=== PATIENT | female | born 1990 | race Caucasian/White ===

== ENCOUNTER 2017-03-06 17:26 | Emergency (ER) | payer MEDICAID ==
[~2017-03-06] VITALS: Ht 162.6 cm; Wt 68.0 kg
[~2017-03-06 17:26] MED LIST: HYDROCODONE-APA1 TA1 PO
[2017-03-06 18:18] LABS: URINE BILIRUBIN - DIPSTICK NEGATIVE (NEG); URINE BLOOD NEGATIVE (NEG)
[2017-03-06 18:25] LABS: LYMPH # 2.5 K/mm3 (0.7-4.5); LYMPH % 20.1 % (10-50.0)
[2017-03-06 18:26] LABS: URINE SQUAMOUS CELLS OCC #/hpf (0-5)
--- NOTE | 2017-03-06 18:27 | Emergency Room Report ---
History of Present Illness Time Seen by MD Diaz Presenting Problem in Triage Pt arrived:Walked Presenting Problem:RIGHT FLANK AND RIGHT LOW ABD PAIN PT THINKS HAS A KIDNEY STONE Onset of symptoms date/time:/ or onset unknown for:MEDICAL HX UNKNOWN Treatment Prior to Arrival: VIDEO PRODUCTION INTERN Provided by: Sepsis Risk Assessment: Temp: 98.0 B/P: 117/65 MAP: 82 Pulse: 72 Resp: 18 Recent fever? N Clinical Suspician of Infection? N Mental Status: 1 - Regular (Normal Baseline) Sepsis Risk:Low Sepsis Risk Have you (or family members/close friends) recently traveled outside the [place]? N If Yes, where/when: Have you had exposure to infectious disease within the past month? TB? Other? Specify: Comment Patient complains of RIGHT flank pain that started about 2 PM today. It has now resolved. She has a prior history of a kidney stone, called her primary care provider who advised to come in for evaluation. No other symptoms. ALLERGIES Coded Allergies: No Known Allergies (03/06/17) Home Medications Active Scripts HYDROCODONE 5MG/APAP 325MG (Hydrocodon-Acetaminophen 5-325) 1 TAB PO Q6HP PRN MODERATE TO SEVERE PAIN #30 TAB Prov: 08/12/14 History Medical History General More? 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 Musculoskeletal back pain Physical Exam Vital Signs Vital Signs Date Time Temp Pulse Resp B/P Pulse O2 O2 Flow FiO2 Ox Delivery Rate 03/06 1734 98.0 72 18 117/65 99 General Appearance no apparent distress Eye Exam - bilateral eye normal exam, bilateral eye PERRL, bilateral eye EOMI Ear, Nose, Throat hearing grossly normal, normal ENT inspection Neck normal inspection, non-tender, supple, full range of motion Respiratory Status Yes: trachea midline, chest symmetrical. No: respiratory distress. Lung Sounds bilateral: normal breath sounds, lungs clear. Cardiovascular normal exam, regular rate/rhythm, no peripheral edema, no gallop, no JVD, no murmur, no rub, normal peripheral pulses Peripheral Pulses Pulses normal Yes Gastrointestinal normal bowel sounds, normal exam, non tender, soft, no organomegaly Back no CVA tenderness Extremities normal inspection Neurologic alert, oriented x 3 Mental status normal mood/affect Skin intact, normal color, warm/dry Medical Decision Making LABS/Meds/Orders Pt receiving controlled substance in ED? No Results/Orders Laboratory Tests 03/06/17 1806: Sodium 142, Potassium 4.0, Chloride 98, Carbon Dioxide 25, BUN 12, Creatinine 0.8, Estimated Creat Clear 115, Estimated GFR (MDRD) 87, Glucose 96, Calcium 9.4 , Total Bilirubin 0.4, AST 11 L, ALT 13, Alkaline Phosphatase 73, Total Protein 8.6 H, Albumin 4.4, Globulin 4.2 H, Albumin/Globulin Ratio 1.0 L, Amylase 64, Lipase 141, WBC 12.2 H, RBC 4.47, Hgb 13.3, Hct 39.3, MCV 87.9, RDW 14.2, Plt Count 271, MPV 7.1 L, Gran % 74.2, Gran # 9.1 H, Lymphocytes % 20.1, Monocytes % 4.3, Eosinophils % 0.9, Basophils % 0.5, Lymphocytes # 2.5, Monocytes # 0.5, Eosinophils # 0.1, Basophils # 0.1, PUBS MCHC 33.6, MCH 29.6 03/06/17 1740: Urine Color YELLOW, Urine Appearance CLEAR, Urine pH 7.0, Ur Specific [place] 1.010, Urine Protein NEGATIVE, Urine Ketones NEGATIVE, Urine Blood NEGATIVE, Urine Nitrate NEGATIVE, Urine Bilirubin NEGATIVE, Urine Urobilinogen 0.2, Ur Leukocyte Esterase NEGATIVE, Urine RBC NONE, Urine WBC NONE, Ur Squamous Epith Cells OCC, Urine Bacteria 1+, Urine Glucose NEGATIVE Orders Procedure Date/time Status DIET-NOTHING BY MOUTH 03/[address] ABD & PELVIS W/O CONTRAST 03/[address] ABD/PELVIS REQ 03/06 1759 Complete URINALYSIS/COMPLETE 03/06 1759 Complete URINE 03/06 1759 Complete LIPASE 03/06 1759 Complete CBC WITH AUTO DIFF 03/06 1759 Complete CHEM 12 PROFILE 03/06 1759 Complete AMYLASE 03/06 1759 Complete XRAY/CT/US XRAY/CT/US CT abdomen, pelvis Comment CT scan interpreted by [facility] radiologist. Faxed report received and reviewed: RIGHT nephrolithiasis. Nonobstructing tiny stone within the RIGHT kidney lower pole. Unremarkable LEFT kidney. No hydronephrosis. No ureteral stone. Appendix negative. Prominent LEFT ovary. Low density lesion measuring 30 mm and LEFT adnexa, likely ovarian cyst. Small free fluid within the posterior cul-de-sac. Progress - 7:08 PM: Advised patient of result. No sign of ureteral calculus. Small nephrolithiasis RIGHT kidney which may pass in the future. No signs of gallbladder abnormalities on CT scan, but I also advised her this is a possibility given her symptoms and she should follow up with her primary care physician. It is possible that she passed a stone, but seems unlikely given the lack of hematuria and hydronephrosis. Departure Departure Disposition DC Home or Self Care(routine) Clinical Impression Primary Impression: Right flank pain Condition STABLE Referrals CHEKO ORTIZ (Family) Patient Instructions DI for Flank Pain Additional Instructions Follow-up with primary care physician for further evaluation. Return to the emergency department if any severe pain, vomiting, or fever. ED Critical Care Critical Care No at 1918
[2017-03-06 18:32] LABS: HEMOGLOBIN 13.3 g/dL (12.2-16.2)
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
--- OUTSIDE RECORDS SUMMARY | 2017-03-06 19:11 | External Medical Summary Rpt | CCD ---
Demographics Home Phone Preferred Language Welsh Marital Status Unknown Anabaptism Affiliation Unknown Race Unknown Ethnic Group Unknown Author Author , KADICLAUDIA Brigitte BARBARA Address Unknown Phone [email or web address] Support Name Relationship Address Phone CHRISTAL, Next Of Kin Unknown Unavailable BERNARDINO Immunization Name Date Rout CVX Reac Dose Comm Prov Is Faci e tion ent ider Refu lity Give sed n HPV4 05-0 62 999 Hist D200 No D200 1-20 oric 31 31 (Gar 09 al dasi Info l) rmat ion - Sour ce Unsp ecif ied Meni 05-0 103 999 Hist D200 No D200 nancy 1-20 oric 31 31 occa 09 al l C Info conj rmat ion - Sour ce Unsp ecif ied TST- 08-0 96 999 Hist D200 No D200 PPD 4-20 ori 31 31 intr 04 al ader Info mal rmat ion - Sour ce Unsp ecif ied Tdap 08-0 115 999 Hist D200 No D200 , 1-20 oric 31 31 Adso 04 al rbed Info rmat ion - Sour ce Unsp ecif ied MMR 09-2 3 999 Hist H196 No H196 8-19 oric 98 al Info rmat ion - Sour ce Unsp ecif ied DTP- 07-2 22 999 Hist H196 No H196 Hib 8-19 oric 98 al Info rmat ion - Sour ce Unsp ecif ied MMR 07-2 3 999 Hist H196 No H196 8-19 oric 98 al Info rmat ion - Sour ce Unsp ecif ied Ishan 07-2 10 999 Hist D200 No D200 o-IP 8-19 oric 31 31 V 98 al Info rmat ion - Sour ce Unsp ecif ied Hep 11-1 45 999 Hist D200 No D200 B, 5-19 oric 31 31 UF 93 al Info rmat ion - Sour ce Unsp ecif ied DTaP 07-1 20 999 Hist D200 No D200 5-19 oric 31 31 (Inf 93 al anri Info x) rmat ion - Sour ce Unsp ecif ied Hib, 07-1 17 999 Hist D200 No D200 UF 5-19 oric 31 31 93 al Info rmat ion - Sour ce Unsp ecif ied Ishan 03-2 10 999 Hist D200 No D200 o-IP 4-19 oric 31 31 V 93 al Info rmat ion - Sour ce Unsp ecif ied Hib, 03-2 17 999 Hist D200 No D200 UF 4-19 oric 31 31 93 al Info rmat ion - Sour ce Unsp ecif ied DTaP 03-2 20 999 Hist D200 No D200 4-19 oric 31 31 (Inf 93 al anri Info x) rmat ion - Sour ce Unsp ecif ied Hib, 01-2 17 999 Hist D200 No D200 UF 2- oric 31 31 93 al Info rmat ion - Sour ce Unsp ecif ied Ishan 01-2 10 999 Hist D200 No D200 o-IP 2-19 oric 31 31 V 93 al Info rmat ion - Sour ce Unsp ecif ied DTaP 01-2 20 999 Hist D200 No D200 2-19 oric 31 31 (Inf 93 al anri Info x) rmat ion - Sour ce Unsp ecif ied Hep 12-2 45 999 Hist D200 No D200 B, 1-19 oric 31 31 UF 92 al Info rmat ion - Sour ce Unsp ecif ied Hep 11-2 45 999 Hist D200 No D200 B, 2-19 oric 31 31 UF 92 al Info rmat ion - Sour ce Unsp ecif ied
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
--- OUTSIDE RECORDS SUMMARY | 2017-03-06 19:11 | External Medical Summary Rpt | CCD ---
Demographics Home Phone Preferred Language Divehi Marital Status Unknown Catholic Affiliation Unknown Race Unknown Ethnic Group Unknown Author Author , KADICLAUDIA Brigitte BARBARA Address Unknown Phone [email or web address] Support Name Relationship Address Phone CHRISTAL, Next [...]
--- OUTSIDE RECORDS SUMMARY | 2017-03-06 19:11 | External Medical Summary Rpt | CCD ---
Author Author [employer] Organization [employer] Address Unknown Phone Unavailable Purpose Continuity of Care Document - through 2016
[2017-03-06 19:33] VITALS: BP 128/70
--- NOTE | 2017-03-07 05:44 | RADIOLOGY REPORT PS360 ---
CT ABD PELVIS W/O CONTRAST CLINICAL INDICATION: Right flank pain ABD/FLANK PAIN ORDERING PHYSICIAN: Edward Pearl MD PATIENT AGE: 27 years COMPARISON: None TECHNIQUE: Axial images obtained with sagittal and coronal reformats. PROCEDURE: Oral Contrast: None IV Contrast: None . FINDINGS: Lower thorax: Minimal thickening of the pericardium ABDOMEN: Liver: No masses or biliary dilatation. Gallbladder: Nondistended. No radio opaque stones. Pancreas: No masses or peripancreatic fluid collections. Spleen: Unremarkable. Adrenals: Unremarkable Kidneys/ureters: Nonobstructing punctate calculi within the mid and lower pole the right kidney measuring up to 2 mm Stomach bowel: Nondistended. No obvious mass or thickening. Appendix: No evidence of appendicitis. PELVIS: Reproductive: The adnexa are prominent on both sides. Suspect a 3 cm left ovarian cyst. There is some fluid in the cul-de-sac Bladder: Nondistended. No obvious stones or masses. ABDOMEN & PELVIS: Peritoneum: Small amount fluid in the cul-de-sac. Lymph nodes: No enlarged lymph nodes apparent. Vasculature: No evidence of abdominal aortic aneurysm. No retroperitoneal hemorrhage evident. Bones: No acute fracture IMPRESSION: 1. Nonobstructing right nephrolithiasis. 2. Prominent ovaries with probable 3 cm left ovarian cyst and small amount fluid in the cul-de-sac. 3. Minimal thickening of the pericardium
== END 2017-03-06 19:34 | disposition home or self-care (01) ==
LOC: ER 17:26
PROVIDERS: Emergency Medicine
DX: R10.31 Right lower quadrant pain (principal)